=== PATIENT | female | born 1955 | race Caucasian/White ===

== ENCOUNTER 2016-08-08 20:22 | Emergency (ER) | payer OTHER ==
[2016-08-09 01:36] LABS: HEMOGLOBIN 12.2 gm/dl (12.3-15.3); RED BLOOD COUNT 4.09 M/UL (4.00-5.10)
[2016-08-09 01:56] LABS: BUN/CREATININE RATIO 13 (0-10)
== END 2016-08-09 03:15 | disposition home or self-care (01) ==
LOC: ER1 20:22
PROVIDERS: Physician Assistant
DX: J06.9 Acute upper respiratory infection, unspecified (principal); E11.9 Type 2 diabetes mellitus without complications; I10 Essential (primary) hypertension; Z88.0 Allergy status to penicillin; Z88.2 Allergy status to sulfonamides; Z88.6 Allergy status to analgesic agent
CPT/HCPCS: 71020; 80053; 85025; 87040; 87081; 87880; 99283; J1100